=== PATIENT | female | born 1995 | race Caucasian/White ===

== ENCOUNTER 2018-11-16 19:54 | Observation (INO) ==
[2018-11-16] MEDS ORDERED: Sodium Chloride 0.9% 1,000 ML PRIMARY IV ONE (20:13)
[2018-11-16] MEDS ORDERED: IPRATROPIUM/ALBUTEROL SULFATE 3 ML NEB NEB ONE ×2 (20:13→22:30)
[2018-11-16 20:35] LABS: BASOPHILS # (AUTO) 0.02 10*3/UL; BASOPHILS % (AUTO) 0.1 % (0-1); EOSINOPHILS # (AUTO) 0.01 10*3/UL; EOSINOPHILS % (AUTO) 0 % (0-8); Hematocrit [HCT] 44.7 % (37.0-47.0); Hemoglobin [HGB] 14.6 g/dL (12.0-16.0); LYMPHOCYTES # (AUTO) 0.81 10*3/uL; MEAN CORPUSCULAR HGB CONC 32.7 g/dL (33-37); MEAN CORPUSCULAR VOLUME 92.5 FL (81-99); MONOCYTES % (AUTO) 2.8 % (5-15); NEUTROPHILS # (AUTO) 19.56 10*3/UL; RED BLOOD COUNT 4.83 10^6/uL (4.20-5.40)
[2018-11-16 20:35] LABS: VENOUS PH 7.39 (7.32-7.42)
[2018-11-16 20:36] LABS: PLATELET MORPHOLOGY COMMENT NORMAL MORPHOLOGY (NORM); RBC MORPHOLOGY COMMENT NORMAL MORPHOLOGY (NORM); WBC MORPHOLOGY COMMENT NORMAL MORPHOLOGY (NORM)
[2018-11-16 20:42] LABS: BLOOD UREA NITROGEN 4 mg/dL (7-22); BUN/CREATININE RATIO 6.66 (6-20); SERUM ALBUMIN 4.6 g/dL (3.5-4.8)
[2018-11-16] MEDS ORDERED: methylPREDNISolone 125 MG/2 ML VIAL IVP ONE (22:26)
[2018-11-16] MEDS ORDERED: AZITHROMYCIN 250 MG TABLET PO SCH (22:45)
[2018-11-16] MEDS ORDERED: LIDOCAINE W/ SODIUM BICARB 0.5 ML SYR SUBD PRN (23:44)
[2018-11-16] MEDS ORDERED: IPRATROPIUM/ALBUTEROL SULFATE 3 ML NEB NEB PRN (23:44)
[2018-11-16] MEDS ORDERED: ALBUTEROL SULFATE 8.5 GM HFA INHALER INH PRN ×2 (23:44→23:55)
[2018-11-17] MEDS: Sodium Chloride 0.9% 1,000 ML PRIMARY IV SCH ×2 (00:06→09:37)
[2018-11-17 05:34] LABS: BASOPHILS # (AUTO) 0 10*3/UL; BASOPHILS % (AUTO) 0 % (0-1); EOSINOPHILS # (AUTO) 0 10*3/UL; EOSINOPHILS % (AUTO) 0 % (0-8); Hematocrit [HCT] 38.9 % (37.0-47.0); Hemoglobin [HGB] 12.7 g/dL (12.0-16.0); LYMPHOCYTES # (AUTO) 0.46 10*3/uL; MEAN CORPUSCULAR HGB CONC 32.6 g/dL (33-37); MEAN CORPUSCULAR VOLUME 92.8 FL (81-99); MEAN PLATELET VOLUME 11.6 FL (7.4-12.2); MONOCYTES # (AUTO) 0.05 10*3/UL (0.3-0.8); MONOCYTES % (AUTO) 0.3 % (5-15); NEUTROPHILS # (AUTO) 16.15 10*3/UL; NEUTROPHILS % (AUTO) 96.7 % (50-80); RED BLOOD COUNT 4.19 10^6/uL (4.20-5.40)
[2018-11-17 05:36] LABS: PLATELET MORPHOLOGY COMMENT NORMAL MORPHOLOGY (NORM); RBC MORPHOLOGY COMMENT NORMAL MORPHOLOGY (NORM); WBC MORPHOLOGY COMMENT NORMAL MORPHOLOGY (NORM)
[2018-11-17 05:41] LABS: BLOOD UREA NITROGEN 3 mg/dL (7-22); SERUM ALBUMIN 3.8 g/dL (3.5-4.8)
[2018-11-17] MEDS: predniSONE Tab 20 MG TAB PO SCH (09:45)
[2018-11-17] MEDS: Multivitamin Tab 1 TAB PO SCH (09:45)
[2018-11-18 05:01] LABS: BASOPHILS # (AUTO) 0 10*3/UL; BASOPHILS % (AUTO) 0 % (0-1); EOSINOPHILS # (AUTO) 0.11 10*3/UL; EOSINOPHILS % (AUTO) 0.8 % (0-8); Hematocrit [HCT] 37.6 % (37.0-47.0); LYMPHOCYTES # (AUTO) 1.79 10*3/uL; MEAN CORPUSCULAR HGB CONC 31.9 g/dL (33-37); MEAN CORPUSCULAR VOLUME 94.9 FL (81-99); MEAN PLATELET VOLUME 11.2 FL (7.4-12.2); MONOCYTES # (AUTO) 0.84 10*3/UL (0.3-0.8); MONOCYTES % (AUTO) 6.2 % (5-15); NEUTROPHILS # (AUTO) 10.78 10*3/UL; NEUTROPHILS % (AUTO) 79.7 % (50-80); RED BLOOD COUNT 3.96 10^6/uL (4.20-5.40)
[2018-11-18 05:15] LABS: PLATELET MORPHOLOGY COMMENT NORMAL MORPHOLOGY (NORM); RBC MORPHOLOGY COMMENT NORMAL MORPHOLOGY (NORM); WBC MORPHOLOGY COMMENT NORMAL MORPHOLOGY (NORM)
[2018-11-18 05:27] LABS: BLOOD UREA NITROGEN 4 mg/dL (7-22); SERUM ALBUMIN 3.5 g/dL (3.5-4.8)
[2018-11-18] MEDS: predniSONE Tab 20 MG TAB PO SCH (08:23)
[2018-11-18] MEDS: Multivitamin Tab 1 TAB PO SCH (08:23)
[2018-11-18] MEDS: POTASSIUM CHLORIDE 20 MEQ TAB PO SCH ×2 (10:59→21:39)
[2018-11-18] MEDS ORDERED: methylPREDNISolone 40 MG/1 ML VIAL IVP SCH (18:30)
[2018-11-18 19:17] VITALS: BP 103/63; RESP 20; TEMP 98.3
[2018-11-18 21:32] VITALS: O2SAT 96
== END 2018-11-18 21:53 | disposition home or self-care (01) ==
LOC: MED/SURG 19:54 → ER 19:54 → MED/SURG 23:37
PROVIDERS: ADMIT Internal Medicine; ATTEND Internal Medicine